=== PATIENT | female | born 2000 | race Two or more races ===

== ENCOUNTER 2022-05-25 14:18 | Emergency (ER) | payer SELFPAY ==
[2022-05-25 14:22] VITALS: BP 142/82; PULSE 110; RESP 20; TEMP 37.1; O2SAT 100
--- NOTE | 2022-05-25 16:04 | ED.URI ---
HPI - URI/Sore Throat General Chief Complaint: Upper Respiratory Infection Stated Complaint: cold flu Time Seen by Provider: 05/25/22 16:05 Source: patient, RN notes reviewed and old records reviewed Mode of arrival: ambulatory Limitations: no limitations History of Present Illness HPI Narrative: 22 year old female who presents to [facility] care with complaints of cough and congestion, sore throat and headache for 1 one week duration. Patient reports that she has taken Mucinex D and antihistamine without relief. Patient reports that throat symptoms are better but continues to have acute cough with concern due to history of asthma with no wheezing noted or any shortness of breath reported. MD elicited complaint: cough, sore throat and other (headache) Pertinent past history: asthma Onset (ago): week(s) (1) Treatments prior to arrival: other (Mucinex D and antihistamine) Related Data Allergies Allergy/AdvReac Type Severity Reaction Status Date / Time No Known Allergies Allergy Verified 05/25/22 14:24 Review of Systems Review of Systems: CONSTITUTIONAL: Denies malaise, chills, sweats, or fever. EYES: Denies visual changes, redness, or discharge. ENT: Reports rhinorrhea, congestion, sinus pain, otalgia and sore throat. CARDIOVASCULAR: Denies chest pain, palpitations, or edema. RESPIRATORY: Reports cough.? Denies dyspnea. GASTROINTESTINAL: Denies abdominal pain, nausea, vomiting, diarrhea SKIN: Denies rash or itching. MUSCULOSKELETAL: Denies myalgia. NEUROLOGIC: reports headache. All systems reviewed & are unremarkable except as noted in HPI and below PMFSH Past Medical History Medical History (Updated 06/05/22 @ 08:01 by Rosa M Carr NP) Asthma Social History Social History (Updated 06/05/22 @ 08:01 by Rosa M Carr NP) Smoking status: Never smoker Alcohol intake: unknown Substance use type: does not use Gender identity (if verbalized by the patient): Female Comments At time of signature, agree with nursing past medical, surgical, social and family history. There is no relevant family history pertinent to the presenting complaint Exam Narrative: GENERAL: Well-appearing, well-nourished, and in no acute distress. HEAD: Normocephalic EYES: PERRLA, conjunctivae clear ENT: Nares clear, turbinates edematous and erythematous, clear discharge. Mucous membranes moist. TM pearly wallace with dull light reflex bilaterally; no tragal tenderness. Oropharynx erythematous without lesions. Tonsils not enlarged and without exudate, no drooling, no hoarseness, no trismus, uvula midline. NECK: Supple. No lymphadenopathy CHEST: Clear to auscultation, breath sounds equal. No wheezing, rhonchi, rales, or stridor. No respiratory distress, speaks in full sentences.cough noted which is dry, SAO2 100% on room air. HEART: Regular rate and rhythm. No murmur heard. SKIN: Warm, dry, no rash. NEURO: Alert and oriented x3. PSYCH: Normal mood and affect Course Course Emergency Course: Patient is aware of diagnosis, understands and agrees to treatment plan.? Anticipatory guidance given.? Patient agrees to follow-up as directed and is aware of reasons to seek care at the emergency department. Portions of this record may have been created with voice recognition software Level of Care: Express Care Visit Vital Signs Vital signs: Vital Signs Temperature 37.1 C 05/25/22 14:22 Pulse Rate 110 H 05/25/22 14:22 Respiratory Rate 20 05/25/22 14:22 Blood Pressure 142/82 H 05/25/22 14:22 Pulse Oximetry 100 05/25/22 14:22 Oxygen Delivery Room Air 05/25/22 14:22 Temperature 37.1 C 05/25/22 14:22 Pulse Rate 110 H 05/25/22 14:22 Respiratory Rate 20 05/25/22 14:22 Blood Pressure 142/82 H 05/25/22 14:22 Pulse Oximetry 100 05/25/22 14:22 Oxygen Delivery Room Air 05/25/22 14:22 Reviewed MDM - URI/Sore Throat MDM Narrative Medical decision making narrative: Differentia
== END 2022-05-25 16:20 | disposition home or self-care (01) ==
PROVIDERS: Emergency Provider Registered Nurse
DX: J06.9 Acute upper respiratory infection, unspecified (principal); R05.9 Cough, unspecified; J45.909 Unspecified asthma, uncomplicated
CPT/HCPCS: 99213; G0463